=== PATIENT | male | born 1995 | race Caucasian/White ===

== ENCOUNTER 2018-12-09 13:22 | Emergency (ER) | payer BC ==
--- NOTE | 2018-12-09 14:13 | ED ---
HPI Chest Pain - HPI Summary HPI Summary: This patient is a 23 year old M presenting to ED with a chief complaint of CP that radiated from the epigastric area since 0400 yesterday. The patient reports he had some bad [place] food on evening of 12/05/18. Then, yesterday, he was unable to ambulate or get out of bed due to the pain. The patient rates the pain 5/10 in severity. Symptoms aggravated by movement, deep breaths, and turning his body. Symptoms alleviated by nothing. Patient reports diaphoresis, nausea, and diarrhea (had prune juice to get BM). Patient denies vomiting, urinary sx, edema, recent travel, and any recent heavy exertion. Patient is a nonsmoker and has alcohol occasionally. - History of Current Complaint Chief Complaint: EDChestPainROMI Time Seen by Provider: 12/09/18 13:43 Hx Obtained From: Patient Onset/Duration: Started Days Ago - since 0400 yesterday, Still Present Timing: Constant, Lasting Days Initial Severity: Moderate Current Severity: Moderate Pain Intensity: 5 Pain Scale Used: 0-10 Numeric Chest Pain Radiates: Yes Chest Pain Radiates To:: Other - radiating from epigastric area to his chest Aggravating Factor(s): Position - turning his body, Movement, Deep Breaths Alleviating Factor(s): Nothing Associated Signs and Symptoms: Positive: Chest Pain, Diaphoresis, Nausea, Abdominal Pain - epigastric pain. Negative: Vomiting - Allergy/Home Medications Allergies/Adverse Reactions: Allergies Allergy/AdvReac Type Severity Reaction Status Date / Time No Known Allergies Allergy Unverified 04/11/14 11:45 PMH/Surg Hx/FS Hx/Imm Hx Endocrine/Hematology History: Denies: Hx Diabetes Cardiovascular History: Denies: Hx Coronary Artery Disease, Hx Hypertension Infectious Disease History: No Infectious Disease History: Denies: Traveled Outside the [place] in Last 30 Days - Family History Known Family History: Negative: Cardiac Disease, Hypertension, Diabetes - Social History Alcohol Use: Occasionally Substance Use Type: Reports: None Smoking Status (MU): Former Smoker Review of Systems Positive: Skin Diaphoresis Positive: Chest Pain Positive: Abdominal Pain - epigastric, Diarrhea, Nausea. Negative: Vomiting Positive: no symptoms reported Positive: Other - denies any heavy exertion. Negative: Edema All Other Systems Reviewed And Are Negative: Yes Physical Exam - Summary Physical Exam Summary: Constitutional: Well-developed, Well-nourished, Alert. (-) Distressed Skin: Warm, Dry HENT: Normocephalic; Atraumatic Eyes: Conjunctiva normal Neck: Musculoskeletal ROM normal neck. (-) JVD, (-) Stridor, (-) Tracheal deviation Cardio: Rhythm regular, rate normal, Heart sounds normal; Intact distal pulses; The pedal pulses are 2+ and symmetric. Radial pulses are 2+ and symmetric. (-) Murmur Pulmonary/Chest wall: Effort normal. (-) Respiratory distress, (-) Wheezes, (-) Rales. Reproducible chest wall pain and tenderness to palpation to the R anterior chest wall between the 8th and 9th rib and pain with ROM of his R arm. Abd: Soft, (-) tenderness, (-) Distension, (-) Guarding, (-) Rebound Musculoskeletal: (-) Edema Lymph: (-) Cervical adenopathy Neuro: Alert, Oriented x3 Psych: Mood and affect Normal Triage Information Reviewed: Yes Vital Signs On Initial Exam: Initial Vitals Temp Pulse Resp BP Pulse Ox 101.2 F 116 16 144/86 98 12/09/18 13:29 12/09/18 13:29 12/09/18 13:29 12/09/18 13:29 12/09/18 13:29 Vital Signs Reviewed: Yes Diagnostics - Vital Signs Vital Signs Temp Pulse Resp BP Pulse Ox 12/09/18 13:47 116 19 96 12/09/18 13:46 116 153/91 95 12/09/18 13:29 101.2 F 116 16 144/86 98 - Laboratory Result Diagrams: 12/09/18 14:48 12/09/18 14:48 Lab Statement: Any lab studies that have been ordered have been reviewed, and results considered in the medical decision making process. - Radiology CXR Radiology Interpretation Completed By: Radiologist Summary of Radiographic Findings: NO ACTIVE CARDIOPULMONARY DISEASE IS NOTED. Dr. Cordova has reviewed this radiology report. - EKG 1337 Cardiac Rate: Tachycardia - 109 BPM EKG Rhythm: Sinus Tachycardia Summary of EKG Findings: Sinus tachycardia at 109 bpm, normal NH, normal QRS, normal QTc, normal axis, normal ST, normal T-waves, normal EKG. Re-Evaluation - Re-Evaluation First Eval Re-Evaluation Time: 15:49 Comment: Discussed results with the patient and plan for discharge. Patient understands and agrees with this plan. Chest Pain Course/Dx - Course Assessment/Plan: This patient is a 23 year old M presenting to ED with a chief complaint of CP that radiated from the epigastric area since 0400 yesterday. On exam, the patient has reproducible chest wall pain and tenderness to palpation to the R anterior chest wall between the 8th and 9th rib and pain with ROM of his R arm. CXR reveals NO ACTIVE CARDIOPULMONARY DISEASE IS NOTED. EKG reveals sinus tachycardia at 109 bpm, normal NH, normal QRS, normal QTc, normal axis, normal ST, normal T-waves, normal EKG. In the ED course, the patient was given Toradol. This patient will be discharged home with dx of chest wall pain. Patient understands and agrees with this plan. - Chest Pain Differential Diagnosis/HQI/PQRI: Chest Wall - Diagnoses Provider Diagnoses: Chest wall pain Discharge - Sign-Out/Discharge Documenting (check all that apply): Patient Departure - discharge Patient Received Moderate/Deep Sedation with Procedure: No - Discharge Plan Condition: Good Disposition: HOME Prescriptions: Cyclobenzaprine TAB* [Flexeril 10 MG TAB*] 10 mg PO TID PRN #10 tab PRN Reason: Pain Patient Education Materials: Costochondritis (ED), Chest Wall Pain (ED) Print Language: NAURUAN Forms: *Work Release Referrals: [facility] [Outside] - Billing Disposition and Condition Condition: GOOD Disposition: Home - Attestation Statements Document Initiated by Scribe: Yes Documenting Scribe: Rangel Thomas Provider For Whom Scribe is Documenting (Include Credential): Saloni Marroquin Scribe Attestation: I, Rangel Thomas, scribed for Saloni Light on 12/09/18 at 2135. Scribe Documentation Reviewed: Yes Provider Attestation: The documentation as recorded by the Rangel griffiths accurately reflects the service I personally performed and the decisions made by me, Saloni Marroquin Status of Scribe Document: Viewed
[2018-12-09 15:01] LABS: ABS Basophils 0 10^3/ul (0-0.2); ABS Eosinophils 0 10^3/ul (0-0.6); ABS Lymphocytes 1.9 10^3/ul (1.0-4.8); ABS Monocytes 0.8 10^3/ul (0-0.8); ABS Neutrophils 8.9 10^3/ul (1.5-7.7); ABS Nucleated RBC 0 10^3/ul; Eosinophil % 0.2 %; Hematocrit 45 % (36-46); Hemoglobin 15.4 g/dL (14.0-18.0); Lymphocyte % 16.5 %; Mean Corpuscular HGB Conc 35 g/dL (31-36); Mean Corpuscular Hemoglobin 29 pg (27-31); Mean Corpuscular Volume 84 fL (80-94); Mean Platelet Volume 7.4 fL (7.4-10.4); Nucleated Red Blood Cells % 0; Platelet Count 288 10^3/uL (150-450); Red Blood Count 5.29 10^6 /uL (4.18-5.48); Red Cell Distribution Width 13 % (10.5-15); White Blood Count 11.6 10^3/uL (3.5-10.8)
[2018-12-09 15:15] LABS: Albumin 4.8 g/dL (3.2-5.2); Albumin/Globulin Ratio 1.5 (1-3); BUN/Creatinine Ratio 11.6 (8-20); Calcium 10.1 mg/dL (8.6-10.3); EGFR African American 133.3 (>60); EGFR Non-African American 110.2 (>60); Globulin 3.3 g/dL (2-4); Potassium 3.9 mmol/L (3.5-5.0); Total Bilirubin 0.5 mg/dL (0.2-1.0); Total Protein 8.1 g/dL (6.4-8.9)
[2018-12-09] MEDS ORDERED: Ketorolac INJ* 30 MG/ML 1 ML VIAL IV PUSH ONE (15:45)
[2018-12-09] MEDS ORDERED: Ketorolac INJ* 30 MG/ML 1 ML VIAL IM ONE (15:59)
[2018-12-09 16:10] VITALS: BP 156/95
== END 2018-12-09 16:09 | disposition home or self-care (01) ==
LOC: ED 13:22
DX: R07.89 Other chest pain (principal); R00.0 Tachycardia, unspecified; R61 Generalized hyperhidrosis; R11.0 Nausea; R19.7 Diarrhea, unspecified; R10.13 Epigastric pain; Z87.891 Personal history of nicotine dependence
CPT/HCPCS: 36415; 71045; 80053; 83605; 83690; 84484; 85025; 85379; 93005; 96372; 99283; J1885